=== PATIENT | male | born 1950 | race Caucasian/White ===

== ENCOUNTER 2021-08-21 12:12 | Outpatient (RCR) | payer MEDICARE, SELFPAY ==
[2021-08-21 14:00] VITALS: BP 131/54; PULSE 65; RESP 18; TEMP 36.6; O2SAT 100
[2021-08-21] MEDS: diphenhydrAMINE HCl CAP 25 MG CAPSULE PO (14:03)
[2021-08-21] MEDS: FAMOTIDINE 20 MG TABLET PO (14:03)
[2021-08-21] MEDS: ACETAMINOPHEN 325 MG TABLET 650 MG PO (14:03)
[2021-08-21 15:26] VITALS: BP 123/60; PULSE 66; O2SAT 100
[2021-08-21] MEDS: HEPARIN SODIUM LOCK FLUSH 500 UNITS/5 ML SYRINGE IV PUSH (15:29)
== END 2021-08-21 17:00 ==
LOC: AMCINF 12:12
PROVIDERS: PCP Family Medicine; Visit Provider Internal Medicine Hematology & Oncology
DX: U07.1 COVID-19 (principal); I12.9 Hypertensive chronic kidney disease with stage 1 through stage 4 chronic kidney disease, or unspecified chronic kidney disease; D84.9 Immunodeficiency, unspecified; N18.9 Chronic kidney disease, unspecified
CPT/HCPCS: A9270; M0247; Q0247

== ENCOUNTER → 2022-08-08 12:00 | Outpatient (CLI) | payer MEDICARE, SELFPAY ==
--- NOTE | ~2022-08-08 | XR_ITS ---
XR chest 2V DATE: 08/08/2022 12:22 INDICATION: Unspecified cough for 4 weeks. Acute bronchitis. TECHNIQUE: PA and lateral views COMPARISON: 01/12/2019 PA and lateral chest FINDINGS: Right internal jugular Port-A-Cath catheter, tip overlying superior vena cava near the supe rior cavoatrial junction. Normal heart size. No hilar or mediastinal enlargement. No pulmonary infiltrate or consolidation, ple ural effusion or pulmonary vascular congestion or pneumothorax is detected. IMPRESSION: No active cardiopulmonary disease Right Port-A-Cath Reviewed, dictated and finalized at location A. [employer]
== END ==
PROVIDERS: PCP Family Medicine; Visit Provider Family Medicine
DX: J20.9 Acute bronchitis, unspecified (principal); Z95.828 Presence of other vascular implants and grafts
CPT/HCPCS: 71046